=== PATIENT | female | born 1990 | race Caucasian/White ===

== ENCOUNTER 2017-05-26 10:18 | Emergency (ER) | payer OTHER | END 2017-05-26 10:56 | disposition left against medical advice (07) | LOC: UCEAST 10:18 | DX: O26.859 Spotting complicating pregnancy, unspecified trimester (principal); Z53.21 Procedure and treatment not carried out due to patient leaving prior to being seen by health care provider ==

== ENCOUNTER 2017-05-26 11:02 | Emergency (ER) | payer OTHER ==
--- OUTSIDE RECORDS SUMMARY | 2017-05-26 11:20 | XMS REPORT ---
:1990 External Reference #:[id number] Author Organization [facility] Address [address] [place] [address] Phone [phone] Care Team Providers Name Role Phone Ophelia Barlow M.D. Care Team Information Pipe Changer Unavailable Ophelia Barlow M.D. Primary Care Physician Unavailable Payers Type Date Identification Numbers Payment Provider Subscriber Health Maintenance Effective: Policy Number: [employer] Nap Chiqiu [employer] Organization (O) 11/21/2015 [id number] Group Number: [id number] [address] Group Name: [place] [address] PayID: [id number] Problems Description No Information Family History Date Family Member(s) Problem(s) Comments Father 67 Mother 67 Social History Type Date Description Comments Marital Status Legal Status: Lives With Spouse Occupation [employer] Cigarette Use Nonsmoker ETOH Use Occasional on holidays- none since + urine Recreational Drug Use Denies Drug Use Smoking Nonsmoker Daily Caffeine Consumes on average 1 cup of tea per day Daily Caffeine Consumes on average 1 cup of coffee per day Exercise Type/Frequency Does not exercise Sun Exposure History of sunburns during childhood Seat Belt/Car Seat Always uses car seat Free Text feels safe at home, work and community Allergies, Adverse Reactions, Alerts Date Description Reaction Status Severity Comments 03/20/2016 NKDA active Medications Medication Date Status Form Strength Qnty SIG Indications Ordering Provider Levothyroxine Active Tablets 112mcg 90tabs 1 by Ophelia Sodium 016 mouth Cain, every M.D. day Levothyroxine 0000/0 Hx Tablets 100mcg 90tabs 1 by Masha Sodium 000 - mouth [facility], every Afnp-C 016 day Enskyce 0 Hx Tablets 0.15-30mg-m 28tabs 1 by Masha 000 - cg mouth [facility], every Afnp-C 018 day Immunizations CPT Code Status Date Vaccine Lot # [id number] Given 01/06/2017 Influenza Vac, Quadrivalent, [place] [id number] Given 03/20/2016 Tdap Tetanus, W Pertussis [id number] Vital Signs Date Vital Result Comment 05/20/2017 BP Systolic 120 mmHg BP Diastolic 74 mmHg Heart Rate 92 /min Body Temperature 98.6 F Respiratory Rate 18 /min Height 64 inches 5'4" Weight 128.00 lb BMI (Body Mass Index) 22.0 kg/m2 03/20/2016 BP Systolic 112 mmHg BP Diastolic 62 mmHg Heart Rate 88 /min Body Temperature 99.0 F Height 64 inches 5'4" Weight 123.00 lb BMI (Body Mass Index) 21.1 kg/m2 Right Visual Acuity Distance 20/25 Uncorrected Left Visual Acuity Distance 20/25 uncorrected Results Test Date Test Result H/L Range Note Laboratory test finding 05/23/2016 TSH 0.82 mIU/L 0.50-6.00 Free T4 1.49 ng/dL 0.75-1.54 Pap W/RFX High Risk HPV 03/20/2016 Diagn See Comment: 1 Adeq See Comment: 2 [email or web address] See Comment: 3 Perfor See Comment: 4 Comm . Note See Comment: 5 Iglbp See Comment: 6 Reflex See Comment: 7 Laboratory test finding 03/20/2016 PDF [id number] SEE IMAGE Complete Blood Count 03/20/2016 WBC 8.0 x10^3/UL 3.6-9.6 RBC 4.03 x10^6/UL 3.90-5.70 HGB 12.7 g/dL 12.1-17.2 HCT 36 % 36-50 MCV 90.0 fL 82.2-97.4 MCH 31.5 pg 27.6-33.3 MCHC 34.9 g/dL 33.0-35.5 RDW 12.9 % 11.6-13.7 PLT 336 x10^3/UL 150-400 MPV 7.3 fL Low 7.4-10.4 Gran # 6.0 x10^3/UL 1.5-7.2 Lymph# 1.8 x10^3/UL 0.7-4.9 [place]# 0.2 x10^3/UL 0.1-0.9 Gran % 72.8 % 42.2-75.2 Lymph % 23.6 % 20.5-51.1 [place]% 3.6 % 1.7-9.3 Comprehensive Metabolic Prof 03/20/2016 Sodium 138 mEq/L 134-149 Potassium 4.0 mEq/L 3.6-5.5 Chloride 99 mEq/L 94-112 Carbon Dioxide 24 mEq/L 21-32 Glucose 99 mg/dL 70-105 BUN 8 mg/dL 6-26 Creatinine 0.6 mg/dL 0.6-1.4 BUN/Creat Ratio 13.3 CALC 8.0-36.0 Calcium 9.0 mg/dL 8.6-10.2 Total Protein 7.3 g/dL 6.4-8.3 Albumin 4.6 g/dL 3.8-5.5 Globulin 2.7 g/dL 2.0-4.8 A/G Ratio 1.7 CALC 0.6-2.3 Alk. Phosphatase 39 U/L 30-110 Alt (SGPT) 27 U/L 7-35 Ast (Sgot) 29 U/L 5-34 Total Bilirubin 1.0 mg/dL 0.2-1.3 GFR Non- >60 ml/min/1.73m^ >=60 GFR >60 ml/min/1.73m^ >=60 Laboratory test finding 03/20/2016 TSH 9.81 mIU/L High 0.50-6.00 8 Free T4 0.75 ng/dL 0.75-1.54 Ferritin 17 ng/mL 6-115 Iron And Tibc 03/20/2016 Iron Bind.Cap.(Tibc) 358 g/dL 250-450 9 Uibc 234 g/dL 131-425 9 Iron, Serum 124 g/dL 27-159 9 Iron Saturation 35 % 15-55 9 1 NEGATIVE FOR INTRAEPITHELIAL LESION AND MALIGNANCY. 2 Satisfactory for evaluation. Endocervical and/or squamous metaplastic cells (endocervical component) are present. 3 Z12.4 4 Rosalina Croft Occupational Health Professional (ASCP) 5 The Pap smear is a screening test designed to aid in the detection of premalignant and malignant conditions of the uterine cervix. It is not a diagnostic procedure and should not be used as the sole means of detecting cervical cancer. Both false-positive and false-negative reports do occur. 6 This liquid based ThinPrep(R) pap test was screened with the use of an image guided system. 7 The HPV DNA reflex criteria were not met with this specimen result therefore, no HPV testing was performed. 8 RESULTS VERIFIED BY REPEAT ANALYSIS 9 1 sst Procedures Date CPT Code Description Status 03/20/2016 93867 Vision Test- screening test of visual acuity, Completed quantitative, bila Encounters Type Date Location Provider CPT E/M Dx Office Visit 05/20/2017 7:00p [place] [address] E03.9 Z32.01 L40.9 Office Visit 03/20/2016 10:00a Main Office Masha MaciasApril-C 20601 Z00.00 Z83.2 E03.9 Z23 K29.71 L40.8 Z79.3 Plan of Care 05/20/2017 - Pura Velazquez, JUANE03.9 Hypothyroidism, unspecifiedNew Labs: TSH ([facility])Free T4 ([facility])Comments:we will recheck labs - it is safe to continue your medication through - will need to monitor more closely since your hormones may shift your thyroid [id number] Encounter for test, result positiveNew Labs:Beta HCG QuantitativeComments:we will run a blood test [id number] Psoriasis, unspecifiedComments:use topical solutions if possible, can take benadryl as needed for itchAllComments:~B_~U_Medication Management~b_~u_ Patient Understands medications she's taking? Yes No Are there Barriers to Adherence? Yes No Has the patient been asked about herbal supplements and therapies, and OTC meds? Yes No ~B_~U_Care Plan~b_~u_1. Patient has been queried about patient's goals/preferences and functional/ lifestyle goals at relevant visits. If relevant, describe: na2. Treatment goals as explained to the patient: above3. Are there barriers to meeting treatment goals? Yes No If Yes, please describe:4. Self-Management goals as described to the patient: Yes NoFollow up:As always, we strongly encourage a healthy diet and making physical activity a part of your every day life. If you have questions about how or where to start, please contact the office. Please schedule a full preventative well visit at your earliest convenience
[2017-05-26 11:48] LABS: Urine Appearance Clear; Urine Blood Negative (Negative); Urine Color Yellow; Urine Ketones Negative (Negative); Urine Protein Negative (Negative); Urine Specific Gravity 1.004 (1.010-1.030); Urine Urobilinogen Negative (Negative)
[2017-05-26 11:49] LABS: ABS Basophils 0 10^3/ul (0-0.2); ABS Eosinophils 0 10^3/ul (0-0.6); ABS Lymphocytes 1.8 10^3/ul (1.0-4.8); ABS Monocytes 0.4 10^3/ul (0-0.8); ABS Neutrophils 7.5 10^3/ul (1.5-7.7); ABS Nucleated RBC 0 10^3/ul; Eosinophil % 0.3 % (0-6); Hematocrit 39 % (35-47); Hemoglobin 13.2 g/dl (12.0-16.0); Lymphocyte % 18.3 % (25-47); Mean Corpuscular HGB Conc 34 g/dl (31-36); Mean Corpuscular Hemoglobin 31 pg (27-31); Mean Corpuscular Volume 90 fL (80-97); Mean Platelet Volume 8 um3 (7.4-10.4); Nucleated Red Blood Cells % 0.1; Platelet Count 333 10^3/ul (150-450); Red Cell Distribution Width 13 % (10.5-15); White Blood Count 9.8 10^3/ul (3.5-10.8)
--- NOTE | 2017-05-26 13:49 | RAD ---
HISTORY: Vaginal spotting in a female. COMPARISONS: None TECHNIQUE: Multiple transverse and longitudinal ultrasound images were obtained of the pelvis using grayscale, color flow, spectral and M-mode sonographic imaging. FINDINGS: UTERUS: The uterus is normal in shape, size, contour, and echotexture. GESTATION: There is a gestational sac with a mean diameter of 5 mm corresponding to a gestational age of 5 weeks and 0 days. A 1 mm yolk sac is identified. No pole is visualized. CUL-DE-SAC: There is no free fluid within the cul-de-sac. RIGHT OVARY: The right ovary measures 1.1 x 1.6 x 2.3 cm. LEFT OVARY: The left ovary measures 2.2 x 2.9 x 3.0 cm. And the left ovary there is an avascular and echogenic focus measuring 2.4 x 2.7 x 1.5 cm most consistent with a corpus luteum in this clinical setting. IMPRESSION: There is a gestational sac with a mean diameter corresponding to a gestational age of 5 weeks. Diagnostic possibilities include gestation that is too early to visualize, spontaneous or ectopic .
[2017-05-26 14:04] VITALS: BP 124/53
--- NOTE | 2017-06-07 12:07 | ED ---
Gricel Cardozo Gabriel, scribed for Abraham Lewis MD on 05/26/17 at 1124 . - HPI Summary HPI Summary: This patient is a 26 year old F presenting to [facility] with a chief complaint of light vaginal spotting that began yesterday night that has since resolved. Patient reports sneezing, nasal congestion, sore throat, fatigue, increased urinary frequency, and green soft stool. Patient denies myalgia, fever, dysuria , hematuria, chills, ABD cramping, and diaphoresis. The patient is 5 weeks , was seen at , and sent here for an US. On 05-20-17 she was given a blood test at [facility] and confirmed to be with a hCG of 232. . FHx of miscarriages and fertility issues. - History of Current Complaint Chief Complaint: EDOBProblems Stated Complaint: 5 WEEKS PREGENANT, SPOTTING Time Seen by Provider: 05/26/17 11:19 Hx Obtained From: Patient Chief Complaint: Vaginal Bleeding Onset/Duration: Started Days Ago - 1, Resolved Timing: Intermittent Severity: Mild Current Severity: None Pain Intensity: 0 Location of Pain: None Character: None Associated Signs and Symptoms: Positive: Negative - myalgia, fever, dysuria, hematuria, chills, ABD cramping, and diaphoresis, Other: - sneezing, nasal congestion, sore throat, fatigue, increased urinary frequency, and green soft stool - Allergies/Home Medications Allergies/Adverse Reactions: Allergies Allergy/AdvReac Type Severity Reaction Status Date / Time No Known Allergies Allergy Verified 05/26/17 11:15 PMH/Surg Hx/FS Hx/Imm Hx Endocrine/Hematology History: Reports: Hx Thyroid Disease, Other Endocrine/ Hematological Disorders - psoriasis Sensory History: Denies: Hx Legally Blind EENT History: Denies: Hx Deafness Neurological History: Denies: Hx CVA, Hx Dementia Infectious Disease History: No Infectious Disease History: Denies: Traveled Outside the [place] in Last 30 Days - Family History Known Family History: Positive: Other - Mother has had multiple miscarriages and sister had fertility issues. Negative: Respiratory Disease, Seizure Disorder - Social History Occupation: Employed Full-time - at [employer] Alcohol Use: Occasionally Hx Substance Use: No Substance Use Type: Reports: None Hx Tobacco Use: No Smoking Status (MU): Never Smoked Tobacco Review of Systems Positive: Fatigue. Negative: Fever, Chills, Skin Diaphoresis Negative: Erythema Positive: Sore Throat, Other - nasal congestion Negative: Chest Pain Positive: Other - sneezing . Negative: Shortness Of Breath, Cough Positive: Diarrhea - green soft stool . Negative: Abdominal Pain, Vomiting, Nausea Genitourinary: Other - vaginal bleeding Positive: urgency. Negative: dysuria, hematuria Negative: Myalgia, Edema Negative: Rash Neurological: Negative - dizziness All Other Systems Reviewed And Are Negative: Yes Physical Exam - Summary Physical Exam Summary: Constitutional: Well-developed, Well-nourished, Alert. (-) Distressed Skin: Warm, Dry HENT: Normocephalic; Atraumatic Eyes: Conjunctiva normal Neck: Musculoskeletal ROM normal neck. (-) JVD, (-) Stridor, (-) Tracheal deviation Cardio: Rhythm regular, rate normal, Heart sounds normal; Intact distal pulses; The pedal pulses are 2+ and symmetric. Radial pulses are 2+ and symmetric. (-) Murmur Pulmonary/Chest wall: Effort normal. (-) Respiratory distress, (-) Wheezes, (-) Rales Abd: Soft, (-) Tenderness, (-) Distension, (-) Guarding, (-) Rebound Musculoskeletal: (-) Edema Lymph: (-) Cervical adenopathy Neuro: Alert, Oriented x3 Psych: Mood and affect Normal - Physical Exam Triage Information Reviewed: Yes Vital Signs Reviewed: Yes Diagnostics - Vital Signs Vital Signs Temp Pulse Resp BP Pulse Ox 05/26/17 11:11 99.7 F 98 18 125/65 100 - Laboratory Result Diagrams: 05/26/17 11:40 05/26/17 11:40 Lab Statement: Any lab studies that have been ordered have been reviewed, and results considered in the medical decision making process. - Additional Comments Diagnostic Additional Comments: US reveals, per radiologist, There is a gestational sac with a mean diameter corresponding to a gestational age of 5 weeks. Diagnostic possibilities include gestation that is too early to visualize , spontaneous or ectopic . ED physician has reviewed this radiology report. Re-Evaluation - Re-Evaluation First Eval Re-Evaluation Time: 13:59 Change: Unchanged Comment: I discussed the possibility of a miscarriage with the patient and she understands. Course/Dx - Course Assessment/Plan: This patient is a 26 year old F presenting to [facility] with a chief complaint of light vaginal spotting that began yesterday night that has since resolved. Patient reports sneezing, nasal congestion, sore throat, fatigue , increased urinary frequency, and green soft stool. Patient denies myalgia, fever, dysuria, hematuria, chills, ABD cramping, and diaphoresis. The patient is 5 weeks , was seen at , and sent here for an US. On 05-20-17 she was given a blood test at [facility] and confirmed to be with a hCG of 232. . FHx of miscarriages and fertility issues. . US reveals, per radiologist, There is a gestational sac with a mean diameter corresponding to a gestational age of 5. weeks. Diagnostic possibilities include gestation that is too early to visualize,. spontaneous or ectopic . Test results with no significant abnormalities except for hCG of 4860, UA and blood work obtained. Dx of URI, threaten , first trimester bleeding,. Patient will be discharged and follow up from Dr. Glass. The patient is agreeable with this plan. - Differential Diagnosis/HQI/PQRI: Threatened , First Trimester Bleeding - Diagnoses Provider Diagnoses: URI (upper respiratory infection) Discharge - Discharge Plan Condition: Stable Disposition: HOME Patient Education Materials: Threatened Miscarriage (ED), First Trimester Vaginal Bleed (ED) Referrals: Ophelia Barlow MD [Primary Care Provider] - Renetta Glass MD [Medical Doctor] - 2 Days Additional Instructions: RETURN TO EMERGENCY DEPARTMENT FOR ANY NEW OR WORSENING SYMPTOMS The documentation as recorded by the Gricel marin Gabriel accurately reflects the service I personally performed and the decisions made by , Abraham Lewis MD.
== END 2017-05-26 14:03 | disposition home or self-care (01) ==
LOC: ED 11:02
DX: O26.891 Other specified pregnancy related conditions, first trimester (principal); Z3A.01 Less than 8 weeks gestation of pregnancy; O99.281 Endocrine, nutritional and metabolic diseases complicating pregnancy, first trimester
CPT/HCPCS: 36415; 76801; 80053; 81003; 81015; 84702; 85025; 86850; 86900; 86901; 87086; 99282